=== PATIENT | male | born 1940 | race Caucasian/White ===

== ENCOUNTER → 2019-03-04 13:52 | Outpatient (CLI) | payer MEDICARE, OTHER, SELFPAY ==
--- NOTE | 2019-03-04 | DI.RAD.S_ITS ---
PROCEDURE: XR RIBS LT 2V INDICATIONS: PLEURODYNIA TECHNIQUE: 3 views of the left ribs were acquired. COMPARISON: None. FINDINGS: Surgical changes and devices: None. Bones and chest wall: Acute, minimally displaced fracture of the distal left eighth rib with possible nondisplaced fractures of the distal left sixth and seventh ribs. No other fractures seen. No suspicious bony lesions. Overlying soft tissues appear unremarkable. Lungs and pleura: The visualized lung appears clear. No pleural effusions or pneumothorax are visible. IMPRESSION: 1. Acute, minimally displaced distal left eighth rib fracture. No pneumothorax. 2. Possible nondisplaced acute fractures of the left sixth and seventh ribs. 3. No acute cardiopulmonary abnormalities. Dictated by: Johnathon Nicole M.D. on 03/04/2019 at 17:26 Approved by: Johnathon Nicole M.D. on 03/04/2019 at 17:31
--- NOTE | 2019-03-04 | DI.RAD.S_ITS ---
PROCEDURE: XR HAND RT MIN 3V INDICATIONS: R HAND PAIN TECHNIQUE: 3 views of the hand(s) acquired. COMPARISON: None. FINDINGS: Bones: No acute fractures or dislocations. Carpal bones are normally aligned. No suspicious bony lesions. Degenerative changes of the distal interphalangeal joints of the second through fifth fingers. There are also degenerative changes of the proximal interphalangeal joint of the right second, third, and fifth fingers. Degenerative changes of the right thumb interphalangeal and metacarpophalangeal joints. Minimal degenerative changes of the right triscaphe joint. No suspicious osseous erosions or periarticular osteopenia. Soft tissues: No suspicious soft tissue calcifications. IMPRESSION: Right hand without acute osseous abnormalities. 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 No evidence for an inflammatory/erosive arthropathy. Dictated by: Johnathon Nicole M.D. on 03/04/2019 at 17:23 Approved by: Johnathon Nicole M.D. on 03/04/2019 at 17:26
== END ==
PROVIDERS: PCP Internal Medicine; Visit Provider Family Medicine
DX: R07.81 Pleurodynia (principal); M79.641 Pain in right hand; M19.041 Primary osteoarthritis, right hand; S22.32XA Fracture of one rib, left side, initial encounter for closed fracture
CPT/HCPCS: 71100; 73130

== ENCOUNTER → 2022-07-28 13:19 | Outpatient (CLI) | payer MEDICARE, OTHER, SELFPAY ==
--- NOTE | 2022-07-28 | DI.RAD.S_ITS ---
PROCEDURE: FL BARIUM SWALLOW INDICATIONS: Gastro-esophageal reflux disease COMPARISON: None. FINDINGS: Function: Tertiary contraction noted during the examination consistent with some degree of esophageal dysmotility. There is some mild to moderate spontaneous gastroesophageal reflux during the examination. Patient was unable to initiate swallowing of the barium pill on multiple attempts. Morphology: Air-contrast images demonstrate normal mucosal morphology. There is a small to moderate-sized paraesophageal hiatal hernia present which causes relative narrowing of the distal esophagus secondary to the mass effect from the hernia. There is also a small associated hiatal hernia present. IMPRESSION: 1. Small to moderate-sized paraesophageal hiatal hernia present causing relative narrowing of the distal esophagus secondary to the mass effect. 2. Small hiatal hernia. 3. Tertiary contractions consistent with some degree of esophageal dysmotility. 4. Mild to moderate gastroesophageal reflux. Dictated by: Yoni Chery M.D. on 07/28/2022 at 14:07 Approved by: Yoni Chery M.D. on 07/28/2022 at 14:13
== END ==
PROVIDERS: PCP Internal Medicine; Referring Provider Internal Medicine Gastroenterology; Visit Provider Internal Medicine Gastroenterology
DX: K21.9 Gastro-esophageal reflux disease without esophagitis (principal); K44.9 Diaphragmatic hernia without obstruction or gangrene; K22.4 Dyskinesia of esophagus; Z87.19 Personal history of other diseases of the digestive system
CPT/HCPCS: 74220